=== PATIENT | male | born 1980 | race Hispanic/Latino ===

== ENCOUNTER 2017-07-25 10:27 | Outpatient (CLI) | payer OTHER | END 2017-07-25 10:28 | disposition home or self-care (01) | LOC: BICCT 10:27 → EDSTATUS 10:30 | DX: S06.0X0A Concussion without loss of consciousness, initial encounter (principal) | CPT/HCPCS: 70450 ==

== ENCOUNTER 2021-03-24 13:14 | Emergency (ER) | payer SELFPAY ==
[2021-03-24 13:59] LABS: #Basophils 0.1 thou/uL (0.0-0.2); #Eosinphils 0.1 thou/uL (0.0-0.7); #Lymphocytes 2.3 thou/uL (1.20-3.40); #Monocytes 0.4 thou/uL (0.11-0.59); #Neutrophils 9.2 thou/uL (1.40-6.50); %Basophils 0.8 % (0.0-1.0); %Eosinophils 0.6 % (0.0-10.0); %Lymphocytes 19.2 % (21.0-51.0); %Monocytes 3.6 % (0.0-10.0); %Neutrophils 75.8 % (42.0-75.0); Hemoglobin 14.6 g/dL (14.0-18.0); Mean Corpuscular HGB CONC 34.9 g/dL (32.0-36.0); Mean Corpuscular Volume 91.8 fL (78.0-98.0); Platelet Count 138 thou/uL (130-400); RBC Distribution Width 11.1 % (11.5-14.5); Red Blood Cell (RBC) Count 4.55 mill/uL (4.70-6.10); White Blood Cell (WBC) Count 12.1 thou/uL (4.8-10.8)
[2021-03-24] MEDS ORDERED: Promethazine HCl 25 MG/ML VIAL ONE (14:02)
[2021-03-24 14:13] LABS: Acetaminophen Less than 6.0 mcg/mL (10.0-30.0); Alcohol Less than 10 mg/dL (Less than 10); Salicylate Less than 8.0 mg/dL (15.0-30.0)
[2021-03-24 14:16] LABS: ALT (SGPT) 116 U/L (8-55); AST (SGOT) 66 U/L (5-34); Albumin 4.2 g/dL (3.5-5.0); Alkaline Phosphatase 91 U/L (40-110); Anion Gap 14 mmol/L (10-20); BUN (Urea Nitrogen) 14 mg/dL (8.9-20.6); Bilirubin, Total 0.3 mg/dL (0.2-1.2); Calc. Creatinine Clearance 0 mL/min (70-130); Calcium 8.9 mg/dL (7.8-10.44); Carbon Dioxide 23 mmol/L (22-29); Chloride 104 mmol/L (98-107); Globulin 3.2 g/dL (2.4-3.5); Glucose 148 mg/dL (70-105); Lipase 38 U/L (8-78); Potassium 3.5 mmol/L (3.5-5.1); Protein, Total 7.4 g/dL (6.0-8.3); Sodium 137 mmol/L (136-145)
== END 2021-03-24 15:50 | disposition home or self-care (01) ==
LOC: ERS 13:14
DX: R11.2 Nausea with vomiting, unspecified (principal)
CPT/HCPCS: 36415; 71045; 80053; 80307; 83690; 84484; 85025; 93005; 94760; 96374; J2550

== ENCOUNTER 2022-12-12 19:36 | Emergency (ER) | payer OTHER, SELFPAY | END 2022-12-12 20:46 | LOC: ERS 19:36 | DX: Z04.1 Encounter for examination and observation following transport accident (principal); Z02.79 Encounter for issue of other medical certificate; I10 Essential (primary) hypertension; V89.2XXA Person injured in unspecified motor-vehicle accident, traffic, initial encounter | CPT/HCPCS: 93005 ==